=== PATIENT | male | born 1985 | race Hispanic/Latino ===

== ENCOUNTER 2019-09-06 09:37 | Emergency (ER) | payer OTHER ==
--- NOTE | 2019-09-06 12:14 | Emergency Department Report ---
ED Psych HPI - General Chief Complaint: Psych Stated Complaint: MH IDEATION Time Seen by Provider: 09/06/19 09:59 Source: police Mode of arrival: Stretcher - History of Present Illness Initial Comments: Patient is a 34-year-old male who states he is here secondary to depression. Patient's was not answering his phone all purpose at home and his family members were looking for him. Please recall about doing well check. They brought the patient in for evaluation. Patient denies being homicidal suicidal. Auditory or visual hallucinations. The patient states he just wanted the left allowing very depressed. - Related Data Allergies Allergy/AdvReac Type Severity Reaction Status Date / Time No Known Allergies Allergy Verified 09/06/19 11:28 ED Review of Systems ROS: Stated complaint: MH IDEATION Other details as noted in HPI Comment: All other systems reviewed and negative ED Past Medical Hx - Past Medical History Previous Medical History?: Yes Hx Psychiatric Treatment: Yes (biploar, MDD) - Surgical History Past Surgical History?: No - Social History Smoking Status: Unknown if ever smoked Substance Use Type: None ED Physical Exam - General Limitations: No Limitations General appearance: alert, in no apparent distress - Head Head exam: Present: atraumatic, normocephalic - Eye Eye exam: Present: normal appearance, PERRL, EOMI - ENT ENT exam: Present: mucous membranes moist - Neck Neck exam: Present: normal inspection - Respiratory Respiratory exam: Present: normal lung sounds bilaterally. Absent: respiratory distress, wheezes, rales, rhonchi - Cardiovascular Cardiovascular Exam: Present: regular rate, normal rhythm, normal heart sounds. Absent: systolic murmur, diastolic murmur, rubs, gallop - GI/Abdominal GI/Abdominal exam: Present: soft, normal bowel sounds. Absent: distended, tenderness, guarding, rebound - Rectal Rectal exam: Present: deferred - Extremities Exam Extremities exam: Present: normal inspection - Back Exam Back exam: Present: normal inspection - Neurological Exam Neurological exam: Present: alert, oriented X3 - Psychiatric Psychiatric exam: Present: normal affect, normal mood - Skin Skin exam: Present: warm, dry, intact, normal color. Absent: rash ED Medical Decision Making - Medical Decision Making Was evaluated by mental health boy's adviser and an the stated they were unable to get any additional history that will warrant a 1013. Patient be discharged home as given outpatient resources for his depression. Critical care attestation.: If time is entered above; I have spent that time in minutes in the direct care of this critically ill patient, excluding procedure time. ED Disposition Clinical Impression: Depressed Qualifiers: Depression Type: unspecified Qualified Code(s): F32.9 - Major depressive disorder, single episode, unspecified Disposition: DC-01 TO HOME OR SELFCARE Is pt being admited?: No Does the pt Need Aspirin: No Condition: Stable Instructions: Depression (ED) Time of Disposition: 12:13
== END 2019-09-06 12:36 | disposition home or self-care (01) ==
LOC: ED 09:37
DX: F32.9 Major depressive disorder, single episode, unspecified (principal)
CPT/HCPCS: 99281